=== PATIENT | male | born 1955 | race Caucasian/White ===

== ENCOUNTER 2018-12-31 09:06 | Inpatient (IN) | payer BC ==
[2018-12-31] VITALS (8 sets, daily range): BP systolic 109–144; BP diastolic 47–72
[~2018-12-31] VITALS: Ht 185.4 cm; Wt 97.4 kg
[~2018-12-31 09:06] MED LIST: DOXA4TAB5 PO; OXYB10TA14 PO
[2018-12-31] MEDS ORDERED: BUPIVACAINE W/ EPINEPH 0.25% INJ 50ML MDV ONE (09:58)
[2018-12-31] MEDS ORDERED: TRANEXAMIC ACID 10 ML ONE ×2 (09:59→10:38)
[2018-12-31] MEDS ORDERED: KETOROLAC TROMETH 30 MG/ML 1ML VIAL ONE (10:02)
[2018-12-31] MEDS ORDERED: VANCOMYCIN HCL 1000 MG VL ONE ×2 (10:06→10:23)
[2018-12-31] MEDS ORDERED: TETRACAINE 1% INJ 2 ML VIAL IJ ONE (10:14)
[2018-12-31] MEDS ORDERED: MORPHINE SULF(PF) 0.5MG/ML 10ML VIAL ONE (10:15)
[2018-12-31] MEDS ORDERED: fentaNYL CITRATE 100 MCG/2 ML VL ONE (10:15)
[2018-12-31] MEDS ORDERED: MIDAZOLAM HCL 1MG/1ML-2 ML VIAL ONE (10:15)
[2018-12-31] MEDS ORDERED: CELECOXIB 100 MG CAP ONE (10:23)
[2018-12-31] MEDS ORDERED: ACETAMINOPHEN IV 100 ML IV ONE (10:23)
[2018-12-31] MEDS ORDERED: PROPOFOL 10 MG/ML 20 ML IV ONE (10:25)
[2018-12-31] MEDS ORDERED: PHENYLEPHRINE HCL 10 MG/ML VL IV ONE (10:25)
[2018-12-31] MEDS ORDERED: CELECOXIB 100 MG CAP PO ONE (12:30)
[2018-12-31] MEDS ORDERED: PREGABALIN CAPSULE 75 MG CAP PO ONE (12:30)
[2018-12-31] MEDS ORDERED: ACETAMINOPHEN IV 1000 MG/100ML (10MG/ML) IV ONE (12:30)
[2018-12-31] MEDS ORDERED: MIDAZOLAM HCL 1MG/1ML-2 ML VIAL IV PRN (12:45)
[2018-12-31] MEDS ORDERED: DexAMETHasone SOD PHOS 10MG/1ML VIAL INJ IV PRN (12:45)
[2018-12-31] MEDS ORDERED: NALOXONE HCL 0.4 MG/ML VIAL IV PRN (12:45)
[2018-12-31] MEDS ORDERED: ONDANSETRON HCL 4 MG/2 ML VIAL IV PRN ×2 (12:45→13:15)
[2018-12-31] MEDS ORDERED: NALBUPHINE HCL 10 MG/1ml INJECTION SUBCUT ONE (12:45)
[2018-12-31] MEDS ORDERED: diphenhdrAMINE HCL 50 MG/1 ML VL IV PRN (12:45)
[2018-12-31] MEDS ORDERED: KETOROLAC TROMETH 30 MG/ML 1ML VIAL IV PRN ×2 (12:45→13:15)
[2018-12-31] MEDS ORDERED: LABETALOL HCL 5 MG/ML 4ML SYRINGE IV PRN (12:45)
[2018-12-31] MEDS ORDERED: HYDROmorphone HCL 2 MG/ML VL IV PRN (12:45)
[2018-12-31] MEDS ORDERED: ePHEDrine SULFATE 50 MG/ML AMP IV PRN (12:45)
[2018-12-31] MEDS: LACTATED RINGER'S 1,000 ML IV SCH ×2 (13:01→23:01)
[2018-12-31] MEDS ORDERED: MORPHINE SULF INJ 2 MG/ML SYRINGE 1ML IV PRN (13:15)
[2018-12-31] MEDS ORDERED: NITROGLYCERIN 0.4 MG SL TAB SL PRN (13:15)
[2018-12-31] MEDS ORDERED: BISACODYL 5 MG EC TAB PO PRN (13:15)
[2018-12-31] MEDS: AZTREONAM 1GM INJ 1 GM in D5W 5% 50 ML IV SCH ×2 (18:53→21:22)
[2018-12-31] MEDS: SODIUM CHLOR 0.9% PF (SALINE LOCK) 10ML VIAL/SYR IV SCH ×2 (18:53→22:01)
--- NOTE | 2018-12-31 19:30 | NUR ---
Opening Shift Note Received report from Nikole LIANG. Assumed care of patient, awake and alert. No S/S of distress/SOB or pain. Instructed on POC and to call for assist PRN. Fall precaution measures in place, will continue to monitor for changes Q1hr and PRN.
[2018-12-31] MEDS: VANCOMYCIN 1GM/250ML 250 ML IV SCH (22:00)
[2018-12-31] MEDS: DOXAZOSIN MESYL 2 MG TAB PO SCH (22:01)
[2018-12-31] MEDS: DOCUSATE SOD 100 MG CAP PO SCH (22:01)
[2019-01-01] VITALS (13 sets, daily range): BP systolic 100–152; BP diastolic 45–73
[2019-01-01] MEDS: OXYCODONE W/ ACETAMINOPHEN 5/325MG TABLET PO PRN ×3 (01:31→18:19)
[2019-01-01] MEDS: AZTREONAM 1GM INJ 1 GM in D5W 5% 50 ML IV SCH (06:05)
[2019-01-01] MEDS: SODIUM CHLOR 0.9% PF (SALINE LOCK) 10ML VIAL/SYR IV SCH ×3 (06:05→22:03)
[2019-01-01 06:15] LABS: Hematocrit 31.8 % (41.0-53.0); Hemoglobin 11.4 g/dL (13.5-17.5)
[2019-01-01 06:34] LABS: Albumin 2.9 g/dL (3.4-5.0); BUN/Creatinine Ratio 17.5; Calcium 7.8 mg/dL (8.5-10.1)
[2019-01-01 06:37] LABS: Bilirubin, Total 1.1 mg/dL (0.2-1.0); Total Protein 5.5 g/dL (6.4-8.2)
--- NOTE | 2019-01-01 07:36 | NUR ---
Opening Shift Note Assumed care of patient, awake and alert. No S/S of distress/SOB or pain. Instructed on POC and to call for assist PRN, will continue to monitor for changes Q1hr and PRN.
[2019-01-01] MEDS: DOCUSATE SOD 100 MG CAP PO SCH ×2 (08:41→21:15)
[2019-01-01] MEDS: VANCOMYCIN 1GM/250ML 250 ML IV SCH (08:42)
[2019-01-01] MEDS: ENOXAPARIN SOD 40 MG/0.4 ML SYRINGE SC SCH (08:42)
[2019-01-01] MEDS: OXYBUTYNIN CHLORIDE 10 MG PO SCH ×2 (08:44→10:00)
[2019-01-01] MEDS: LACTATED RINGER'S 1,000 ML IV SCH ×2 (09:01→14:22)
[2019-01-01] MEDS: KETOROLAC TROMETH 30 MG/ML 1ML VIAL IV PRN (10:34)
[2019-01-01] MEDS: HYDROmorphone HCL 2 MG/ML VL IV PRN ×2 (12:35→16:05)
--- NOTE | 2019-01-01 13:12 | NUR ---
Nassar catheter dc'd Order to discontinue nassar catheter. Nassar dc'd with clean technique following deflation of balloon. Patient tolerated well with no complaints of pain. Continue care.
[2019-01-01] MEDS ORDERED: MORPHINE SULF INJ 2 MG/ML SYRINGE 1ML IV ONE (19:30)
[2019-01-01] MEDS ORDERED: HYDROcodone-ACET 10/325MG TAB PO ONE (19:30)
--- NOTE | 2019-01-01 19:30 | NUR ---
Opening Shift Note Assumed care of patient, awake and alert. No S/S of distress/SOB. patient reported 9/10 pain to his right knee aching, nonradiating, will medicate per protocol. Instructed on POC and to call for assist PRN, will continue to monitor for changes Q1hr and PRN. bed in low position and call light within reach
[2019-01-01] MEDS: DOXAZOSIN MESYL 2 MG TAB PO SCH (21:14)
[2019-01-02] MEDS: HYDROmorphone HCL 2 MG/ML VL IV PRN ×2 (00:48→05:01)
[2019-01-02] MEDS: LACTATED RINGER'S 1,000 ML IV SCH ×3 (04:56→23:40)
--- NOTE | 2019-01-02 05:30 | NUR ---
PATIENT ON CPM AT 45. PATIENT STATED HE WOULD LIKE TO STAY AT 45. EDUCATED PATIENT ON MD ORDERS AND CPM
--- NOTE | 2019-01-02 05:30 | NUR ---
IV insertion IV access obtained, via clean sterile technique by inserting 22 gauge catheter at left hand after 1 attempt. IV secured properly. No trauma to site. Patient tolerated well.
--- NOTE | 2019-01-02 05:33 | NUR ---
IV removal IV DC'd from patient right hand. with clean sterile technique, catheter fully intact. Pressure dressing applied to site. Patient tolerated well.
[2019-01-02 05:40] VITALS: BP 147/68
[2019-01-02] MEDS: SODIUM CHLOR 0.9% PF (SALINE LOCK) 10ML VIAL/SYR IV SCH ×3 (06:03→21:58)
--- NOTE | 2019-01-02 07:10 | NUR ---
Opening Shift Note Assumed care of patient, PT resting in bed with even and non-labored respirations. No S/S of distress/SOB or pain. will continue to monitor for changes Q1hr and PRN.
--- NOTE | 2019-01-02 07:13 | NUR ---
REPORT GIVEN TO DAYSREINALDOFT RN. INFORMED RN OF CPM MACHINE SETTING. PATIENT DENIED SOB AND INFORMED RN PATIENT CONTINUES TO HAVE PAIN ON HIS RGHT KNEE
[2019-01-02 07:32] LABS: Hematocrit 30.2 % (41.0-53.0)
[2019-01-02] MEDS: OXYCODONE W/ ACETAMINOPHEN 5/325MG TABLET PO PRN ×4 (08:16→21:57)
[2019-01-02 09:00] VITALS: BP 158/75
[2019-01-02] MEDS: DOCUSATE SOD 100 MG CAP PO SCH ×2 (09:40→21:56)
[2019-01-02] MEDS: ENOXAPARIN SOD 40 MG/0.4 ML SYRINGE SC SCH (09:43)
[2019-01-02] MEDS: OXYBUTYNIN CHLORIDE 10 MG PO SCH (10:00)
[2019-01-02] MEDS: KETOROLAC TROMETH 30 MG/ML 1ML VIAL IV PRN (10:31)
[2019-01-02 13:00] VITALS: BP 142/52
--- NOTE | 2019-01-02 15:52 | NUR ---
Discharge planning per consult, patient has orders for a FWW and Home Health. Referral sent to [facility], placed a follow up call, spoke with Irlanda, patient is accepted onto services. Referral for walker sent to [facility], placed a follow up call, and was advised that patient had a Rollator Walker delivered on 12.26.18. I advised that CM auth for a FWW and the patient just had knee surgery and the rollator is not suffice as it has wheels and would put patient at a risk for falls;rep advised they would process the order as she does see the auth that was approved today at 2pm and would call back with an ETA. I advised to deliver to bedside. Nurse Sarika updated on dc plan. Addendum: 01/02/19 at 1600 by RANI FRENCH SS Amended: Links added. Addendum: 01/02/19 at 1601 by RANI GONZALESO SS [id number]
[2019-01-02] MEDS ORDERED: PERCOT PO (16:12)
--- NOTE | 2019-01-02 16:50 | NUR ---
assessment re: D/C planning Patient is a 63 year old male who is alert and oriented. Patients cognitive abilities are intact. Prior to admission patient lived home with family and functioned independently. Patient informed me he is able to care for his own ADLs. Per patient he will return home to his prior living arrangements post discharge and family will transport him home. Patient has been admitted for right knee replacement. Patient has a fww for home use. Patient will need home health for PT and a CPM. Patient feels safe returning home on discharge. I informed patient he has a right to speak to a executive secretary social welfare regarding all care. I informed patient he has a right to participate in any and all discharge planning. Patient has a POA and advanced directive. Patient verbalized understanding and agreed to discharge plan. Addendum: 01/02/19 at 1653 by Arlette DONG Amended: Links added.
[2019-01-02 17:34] VITALS: BP 130/50
[2019-01-02 21:54] VITALS: BP 153/58
[2019-01-02] MEDS: DOXAZOSIN MESYL 2 MG TAB PO SCH (21:57)
[2019-01-03 04:44] VITALS: BP 154/63
[2019-01-03] MEDS: OXYCODONE W/ ACETAMINOPHEN 5/325MG TABLET PO PRN ×2 (05:01→10:07)
[2019-01-03 06:40] LABS: Hematocrit 29.1 % (41.0-53.0)
--- NOTE | 2019-01-03 07:32 | NUR ---
Opening Shift Note Assumed care of patient, awake and alert. No S/S of distress/SOB or pain. Instructed on POC and to call for assist PRN, will continue to monitor for changes PRN.
[2019-01-03 07:54] LABS: Hemoglobin 10.8 g/dL (13.5-17.5)
[2019-01-03 09:00] VITALS: BP 141/69
[2019-01-03] MEDS: ENOXAPARIN SOD 40 MG/0.4 ML SYRINGE SC SCH (09:54)
[2019-01-03] MEDS: DOCUSATE SOD 100 MG CAP PO SCH (09:54)
[2019-01-03] MEDS: OXYBUTYNIN CHLORIDE 10 MG PO SCH (10:00)
[2019-01-03 10:32] VITALS: BP 153/58
[2019-01-03] MEDS: LACTATED RINGER'S 1,000 ML IV SCH (11:01)
--- NOTE | 2019-01-03 13:53 | NUR ---
Discharge planning per SS consult, patient has orders for home health, CPM, and FWW. [facility] has accepted patient for home health. Obtained auth, [id number]. For FWW [id number];placed a follow up call to [facility] regarding the FWW and was advised bychristi ham that they did not send the FWW because they could not get in touch with patient to see if he was willing to pay a $50 charge for the walker as he was delivered a rollator walker on 12.26.18. I advised that [facility] issued an auth and she advised that [employer] would still be at risk and that she will contact the patient, ortherwise if he didn't pay, they could not deliver the walker. Referral sent to [facility] for replacement CPM, as patient has a CPM at bedside. Referral for replacement CPM was sent to [facility]. Placed a follow up call, spoke with Erna and was advised that they did received it and that [facility] would work on the replacement order. Addendum: 01/03/19 at 1417 by RANI FRENCH Amended: Links added.
--- NOTE | 2019-01-03 13:55 | NUR ---
Discharge instructions given as ordered. Encourage to follow up with PCP as instructed. All questions and concerns addressed. Patient verbalized understanding. Medication reconciliation form completed and copy given to patient. IV removed with catheter intact, pressure dressing applied. Telemetry unit returned to ICU. Patient taken to vehicle via wheelchair with all personal belongings, accompanied by staff and . No distress noted at time of departure.
== END 2019-01-03 13:55 | disposition home health service (06) | DRG 470 ==
LOC: SUR 09:06 → TELE-EAST 16:47
PROVIDERS: ADMIT Orthopaedic Surgery Adult Reconstructive Orthopaedic Surgery; ATTEND Orthopaedic Surgery Adult Reconstructive Orthopaedic Surgery
PROC: 8E0YXBZ Computer Assisted Procedure of Lower Extremity (ICD-10-PCS; 2018-12-31)
PROC: 0SRC0J9 Replacement of Right Knee Joint with Synthetic Substitute, Cemented, Open Approach (ICD-10-PCS; principal; 2018-12-31 10:44)
DX: M17.11 Unilateral primary osteoarthritis, right knee (principal); Z96.651 Presence of right artificial knee joint; I10 Essential (primary) hypertension; Z88.0 Allergy status to penicillin; Z88.2 Allergy status to sulfonamides
CPT/HCPCS: 36415; 73560; 80053; 85014; 85018; 86850; 86900; 86901; 94762; 97110; 97116; 97530; G0378; J0131; J1885; J2250; J2704; J7060

== ENCOUNTER 2024-09-28 09:29 | Inpatient (IN) | payer BC, OTHER ==
[~2024-09-28] VITALS: Ht 182.9 cm; Wt 84.9 kg
[~2024-09-28 09:29] MED LIST changes: -DOXA4TAB5 PO; +DOXA4TAB83 PO; +PERCOT PO
--- NOTE | 2024-09-28 10:22 | ED.PDOC ---
HPI (NEURO) HPI Comments This is a 69 year old male presenting to the ED with chief complaint of dizziness. Patient reports that while at the gym yesterday, he started to experience dizziness after running on the treadmill along with having a high heart rate in the 180s. Patient relays that he rested and his heart rate and symptoms improved, however when going back on the treadmill his symptoms returned. Patient states his normal resting heart rate is in the 60s and recent ly any strenuous activity raises it excessively high. Patient notes he went to this morning regarding his concern, however, he was advised to come to the ED after having an EKG performed. Patient denies any chest pain, SOB, headache, or N/V. Chief Complaint: Dizziness Time Seen by MD: 10:18 Reviewed Notes: Nurses Notes, Medications, Allergies Information Source: Patient Mode of Arrival: Ambulatory Severity: Moderate Dizziness/Weakness Severity: Unable to do activities Timing: Days Duration: Since onset Prehospital treatment: None Onset: With heavy exertion Circumstances: Spontaneous Symptoms: Vertigo Past Medical History PAST MEDICAL HISTORY: Denies Surgical History: Denies all surgeries Family History Family History: Reviewed,noncontributory to illness Social History Smoker: Non-Smoker Alcohol: Denies ETOH Use Drugs: Denies Drug Use Lives In: Home Constitutional: denies: chills, diaphoresis, fatigue, fever, malaise, sweats, weakness, others EENTM: denies: blurred vision, double vision, ear bleeding, ear discharge, ear drainage, ear pain, ear ringing, eye pain, eye redness, hearing loss, mouth pain, mouth swelling, nasal discharge, nose bleeding, nose congestion, nose pain, photophobia, tearing, throat pain, throat swelling, voice changes, others Respiratory: denies: cough, hemoptysis, orthopnea, SOB at rest, shortness of breath, SOB with excertion, stridor, wheezing, others Cardiovascular: denies: chest pain, dizzy spells, diaphoresis, Dyspnea on exertion, edema, irregular heart beat, left arm pain, lightheadedness, palpitations, PND, syncope, others Gastrointestinal: denies: abdomen distended, abdominal pain, blood streaked bowels, constipated, diarrhea, dysphagia, difficulty swallowing, hematemesis, melena, nausea, poor appetite, poor fluid intake, rectal bleeding, rectal pain, vomiting, others Genitourinary: denies: burning, dysuria, flank pain, frequency, hematuria, incontinence, penile discharge, penile sore, pain, testicle pain, testicle swelling, urgency, others Neurological: reports: dizziness; denies: fainting, headache, left sided numbness, left sided weakness, numbness, paresthesia, pre-existing deficit, right sided numbness, right sided weakness, seizure, speech problems, tingling, tremors, weakness, others Musculoskeletal: denies: back pain, gout, joint pain, joint swelling, muscle pain, muscle stiffness, neck pain, others Integumetry: denies: bruises, change in color, change in hair/nails, dryness, laceration, lesions, lumps, rash, wounds, others Allergic/Immunocompromised: denies: Difficulty Healing, Frequent Infections, Hives, Itching, others Hematologic/Lymphatic: denies: anemia, blood clots, easy bleeding, easy bruising, swollen glands, others Endocrine: denies: excessive hunger, excessive sweating, excessive thirst, excessive urination, flushing, intolerance to cold, intolerance to heat, unexplained weight gain, unexplained weight loss, others Psychiatric: denies: anxiety, bipolar disorder, depression, hopeless, panic disorder, schizophrenia, sleepless, suicidal, others All Other Systems: Reviewed and Negative Physical Exam General Appearance: No Apparent Distress, Normal HEENT: Normal ENT Inspection, Pharynx Normal, TMs Normal Neck: Full Range of Motion, Non-Tender, Normal, Normal Inspection Respiratory: Chest Non-Tender, Lungs Clear, No Accessory Muscle Use, No Respiratory Distress, Normal Breath Sounds Cardiovascular: No Edema, No JVD, No Murmur, No Gallop, Normal Peripheral Pulses, Regular Rate/Rhythm Breast Exam: Deferred Gastrointestinal: No Organomegaly, Non Tender, No Pulsatile Mass, Normal Bowel Sounds, Soft Genitalia: Deferred Pelvic: Deferred Rectal: Deferred Extremities: No calf tenderness, Normal capillary refill, Normal inspection, Normal range of motion, Non-tender, No pedal edema Musculoskeletal : Apperance: Normal Neurologic: Alert, body and frame man II-XII nml as Tested, No Motor Deficits, Normal Affect, Normal Mood, No Sensory Deficits Cerebellar Function: Normal Reflexes: Normal Skin: Dry, Normal Color, Warm Lymphatic: No Adenopathy Was a procedure done? Was a procedure done?: No X-Ray, Labs, Meds, VS Vital Signs Date Time Temp Pulse Resp B/P (MAP) Pulse Ox O2 Delivery O2 Flow Rate FiO2 09/28/24 09:35 96 09/28/24 09:31 97.8 49 18 149/88 99 97.8 Lab Test 09/28/24 11:44 09/28/24 10:32 Range/Units Troponin I High Sensitivity Pending 14 </=54 ng/L White Blood Count 6.0 4.4-10.8 10^3/uL Red Blood Count 5.00 4.5-5.90 10^6/uL Hemoglobin 16.0 13.5-17.5 g/dL Hematocrit 44.8 41.0-53.0 % Mean Corpuscular Volume 89.5 80.0-100.0 fL Mean Corpuscular Hemoglobin 32.0 28.0-32.0 pg Mean Corpuscular Hemoglobin Concent 35.8 32.0-36.0 g/dL Red Cell Distribution Width 16.0 H 11.8-14.3 % Platelet Count 317 140-450 10^3/uL Mean Platelet Volume 7.2 6.9-10.8 fL Neutrophils (%) (Auto) 61.7 37.0-80.0 % Lymphocytes (%) (Auto) 30.5 10.0-50.0 % Monocytes (%) (Auto) 6.6 0.0-12.0 % Eosinophils (%) (Auto) 0.7 0.0-7.0 % Basophils (%) (Auto) 0.5 0.0-2.0 % Neutrophils # (Auto) 3.7 1.6-8.6 10 ^3/uL Lymphocytes # (Auto) 1.8 0.4-5.4 10 ^3/uL Monocytes # (Auto) 0.4 0-1.3 10 ^3/uL Eosinophils # (Auto) 0 0-0.8 10 ^3/uL Basophils # (Auto) 0 0-0.2 10 ^3/uL Nucleated Red Blood Cells 0.2 % Prothrombin Time 11.1 9.3-11.8 sec Prothrombin Time INR 1.05 0.9-1.15 Activated Partial Thromboplast Time 27.3 24.5-34.5 SEC D-Dimer, Quantitative 0.24 0.0-0.49 mg/L FEU Sodium Level 141 136-145 mmol/L Potassium Level 4.4 3.5-5.1 mmol/L Chloride Level 104 98-107 mmol/L Carbon Dioxide Level 28 20-31 mmol/L Anion Gap 9 5-15 Blood Urea Nitrogen 18 9-23 mg/dL Creatinine 1.15 0.700-1.30 mg/dL Glomerular Filtration Rate Calc 68 >90 mL/min BUN/Creatinine Ratio 15.7 10.0-20.0 Serum Glucose 99 74-106 mg/dL Calcium Level 10.2 8.7-10.4 mg/dL Magnesium Level 1.8 1.6-2.6 mg/dL Total Bilirubin 1.6 H 0.2-1.0 mg/dL Aspartate Amino Transferase (AST) 23 13-40 U/L Alanine Aminotransferase (ALT) 17 7-40 U/L Alkaline Phosphatase 65 46-116 U/L Total Protein 7.2 5.7-8.2 g/dL Albumin 4.8 3.2-4.8 g/dL X-Ray, Labs, Meds, VS Comment This 69-year-old male presents to the emergency room secondary to intermittent tachycardic. Says heart rate has been as high as the 180s. He will spontaneously resolve. This is unusual for the patient. He has had multiple episodes last 24 hours. Here, her workup was benign. However, seems the patient may be having multiple bouts of SVT may have an undiagnosed life- threatening cardiac abnormality. He will be admitted for monitoring. Time of 1ST Reevaluation: 11:18 Reevaluation 1ST: Unchanged Patient Education/Counseling: Diagnosis, Treatment Family Education/Counseling: No Family Present Departure 1 Departure Time of Disposition: 12:35 Impression: Primary Impression: Chest pain Additional Impressions: Palpitations Tachycardia Disposition: 09 ADMITTED INPATIENT Condition: Serious Critical Care Note Critical Care Time?: No Stability Stability form required: No Heart Score Heart Score: Heart Score Response (Comments) Value History Moderate Suspicious 1 EKG Normal 0 Age >65 2 Risk Factors 1 or 2 risk factors 1 Troponin Normal limit 0 Total 4 I personally scribed for JOSE EDUARDO KIRKLAND MD ([email or web address]) on 09/28/24 at 10:22. Electronically submitted by Carlos Monique ([email or web address]). JOSE EDUARDO KIRKLAND MD Sep 28, 2024 10:22
[2024-09-28 10:58] LABS: Hematocrit 44.8 % (41.0-53.0); Hemoglobin 16.0 g/dL (13.5-17.5); Mean Corpuscular Hemoglobin 32.0 pg (28.0-32.0); Mean Corpuscular Volume 89.5 fL (80.0-100.0); Nucleated Red Blood Cells % 0.2 %
[2024-09-28 11:15] LABS: INR 1.05 (0.9-1.15); Partial Thromboplastin Time 27.3 SEC (24.5-34.5); Prothrombin Time 11.1 sec (9.3-11.8)
[2024-09-28 11:22] LABS: Alanine Aminotransferase 17 U/L (7-40); Albumin 4.8 g/dL (3.2-4.8); Alkaline Phosphatase 65 U/L (46-116); Anion Gap 9 (5-15); BUN/Creatinine Ratio 15.7 (10.0-20.0); Bilirubin, Total 1.6 mg/dL (0.2-1.0); Blood Urea Nitrogen 18 mg/dL (9-23); Calcium 10.2 mg/dL (8.7-10.4); Carbon Dioxide 28 mmol/L (20-31); Chloride 104 mmol/L (98-107); Glucose 99 mg/dL (74-106); Magnesium 1.8 mg/dL (1.6-2.6); Potassium 4.4 mmol/L (3.5-5.1); Sodium 141 mmol/L (136-145); Total Protein 7.2 g/dL (5.7-8.2)
[2024-09-28 16:43] LABS: Urine Amorphous Crystal FEW /hpf (None Seen); Urine Protein, UAD Negative (Negative)
[2024-09-28 19:50] VITALS: PULSE 15
[2024-09-28] MEDS ORDERED: NITROGLYCERIN 0.4 MG SL TAB SL PRN (23:45)
[2024-09-28] MEDS ORDERED: HYDROcodone-ACET 5/325MG TAB PO PRN (23:45)
[2024-09-28] MEDS ORDERED: MORPHINE SULFATE INJ 2 MG/ml SYRG IV PRN (23:45)
[2024-09-28] MEDS ORDERED: ACETAMINOPHEN 325 MG TAB PO PRN (23:45)
[2024-09-28] MEDS: ENOXAPARIN SOD 80 MG/0.8ML SYRINGE SC ONE (23:45)
[2024-09-28] MEDS ORDERED: MELATONIN 5 MG TAB PO PRN (23:45)
[2024-09-28] MEDS: AMIODARONE BOLUS KIT 100 ML IV ONE (23:45)
[2024-09-29] VITALS (8 sets, daily range): BP systolic 111–134; BP diastolic 61–76; PULSE 63–96; RESP 16–19; TEMP 97.2–98.4; O2SAT 97–98
--- NOTE | 2024-09-29 00:10 | DVHHP2 ---
Admitting Diagnosis: Palpitations, Dizziness, new onset a fib History of Present Illness History Source: Patient Exam Limitations: No limitations HPI Mr. Oscar Chapman is a 69 year old male who presents with a chief complaint of dizziness. Patient reports that while at the gym Monday, he started to experience dizziness after running on the treadmill along with having a high heart rate in the 180s. Patient relays that he rested and his heart rate and symptoms improved, however when going back on the treadmill his symptoms returned. Patient states his normal resting heart rate is in the 60s and recently any strenuous activity raises it excessively high. Patient notes he went to yesterday morning regarding his concern, however, he was advised to come to the ED after having an EKG performed. Patient denies any chest pain, SOB, headache, or N/V. Home Meds Reported Medications Terbinafine HCl (Terbinafine Hydrochloride) 250 Mg Tab, 1 TAB PO DAILY 09/29/24 Omeprazole (Gnp Omeprazole) 20 Mg Tab, 40 MG PO DAILY, TAB 09/29/24 Past Medical History Cardiac: No pertinent Hx Pulmonary: No pertinent Hx Central Nervous System: No pertinent Hx GI: No pertinent Hx Hemotology/Oncology: No pertinent Hx Hepatobiliary: No pertinent Hx Psychiatric: No pertinent Hx Musculoskeletal: No pertinent Hx Rheumotologic: No pertinent Hx Infectious Disease: No peritnent Hx ENT: No pertinent Hx Renal/: No pertinent Hx Endocrine: No pertinent Hx Dermatology: No pertinent Hx Smoker: No Hx (Negative) Alocohol: None Drugs: None Lives with: With family Domestic Violence: Neg Review of Systems Constitutional: No symptom reported Ears, Nose, & Throat: No symptom reported Eyes: No symptom reported Pulmonary/Respiratory: No symptom reported Cardiovascular: Palpitations, Other (racing heart ") Gastrointestinal: No symptom reported Genitourinary: No symptom reported Musculoskeletal: No symptom reported Skin: No symptom reported Psychiatric: No symptom reported Endocrine: No symptom reported Hemotologic/Lymphatic: No symptom reported H&P Exam Vital Signs Vital Signs Date Time Temp Pulse Resp B/P (MAP) Pulse Ox O2 Delivery O2 Flow Rate FiO2 09/28/24 19:50 98.1 120 13 111/81 (91) 98 98.1 09/28/24 16:55 Room Air* 0 21 General Appeara: Well developed, Well nourished, Normal Appearance Head Exam: Normal inspection Neck Exam: Normal inspection, Non-tender, Normal alignment Eye Exam: bilateral eye Normal inspection, bilateral eye PERRL, bilateral eye EOMI Ear Exam: bilateral ear Auricle normal Nasal Exam: Normal inspection Mouth: Normal Inspection Pulmonary/Respiratory: Normal inspection, Normal breath sounds, Chest non- tender, Lungs clear Cardiovascular/Chest: Normal inspection, Regular rate, Irregularly irregular Peripheral Pulses: 2+ dorsalis pedis (R), 2+ dorsalis pedis (L), 2+ Radial (R), 2+ Radial (L) Abdominal Exam: Normal bowel sounds, Soft, No tenderness [employer] Exam: Normal hearing, Normal speech, PERRL Motor/Sensory: Normal sensory function, Normal motor function Neuro/Mental St: Alert, Oriented Appearance: Appropriate appearance, Appropriate insight Eye contact/ Speech: Cooperative, Good eye contact, Normal speech Thoughts/Psych: Normal thought pattern Skin Exam: Normal inspection, Normal color, Warm/dry SEPSIS Sepsis Screen Date sepsis recognized/suspect: Sep 28, 2024 Time Sepsis recognized/suspect: 1654 Recent Procedure: No On Antibiotic Therapy: No Respiratory Rate >20: No Heart Rate >90: No Temp<36 C (96.8 F) or >38.3 C: No SBP <90 or MAP <65 mmHG: No New Acute Mental Status Change: No Is the patient on CPAP, BIPAP,: No Physician Orders Amiodarone 360mg/200ml Premix (Nexterone (09/28/24 23:45) Amiodarone 360mg/200ml Premix (Nexterone (09/29/24 05:45) Electrocardigram (09/28/24 23:32) Admit (09/28/24 23:32) * Cardiology Consult (09/28/24 23:32) Magnesium (09/28/24 23:32) Basic Metabolic Panel (09/29/24 05:00) Basic Metabolic Panel (09/30/24 05:00) Basic Metabolic Panel (10/01/24 05:00) Complete Blood Count (09/29/24 05:00) Complete Blood Count (09/30/24 05:00) Complete Blood Count (10/01/24 05:00) Nitroglycerin Sublingual (Ntrostat Subli (09/28/24 23:45) Morphine Sulfate Injection (09/28/24 23:45) Stat Ekg For Chest Pain (09/28/24 23:32) Notify Md Of Changes From Base (09/28/24 23:32) Emergency Dept Tech For 24 Hours (09/28/24 23:32) Emergency Dysrhythmia Protocol (09/28/24 23:32) Rhythm Strips Once Every Shift (09/28/24 23:32) Oxygen By Nasal Cannula (09/28/24 23:32) Cardiac Diet-2gna,Lofat,Lochol (09/29/24 Breakfast) Famotidine Tablet (Pepcid Tablet) (09/29/24 10:00) Acetaminophen Tablet (Tylenol Tablet) (09/28/24 23:45) Hydrocodone-Acet 5/325mg Tab ([place] (09/28/24 23:45) Melatonin (Melatonin) (09/28/24 23:45) Chest Portable (09/28/24 23:48) Troponin-I Hs (09/29/24 06:00) Troponin-I Hs (09/29/24 14:00) Troponin-I Hs (09/29/24 22:00) Echo 2d Mode Cardiac Dop (09/28/24 23:48) Enoxaparin Sodium (Lovenox) (09/29/24 10:00) Vital Signs Date Time Temp Pulse Resp B/P (MAP) Pulse Ox O2 Delivery O2 Flow Rate FiO2 09/28/24 19:50 98.1 120 13 111/81 (91) 98 98.1 09/28/24 18:39 98.1 120 13 120/65 (83) 99 98.1 09/28/24 18:18 98.0 60 16 108/96 (100) 98 98.0 09/28/24 16:55 Room Air* 0 21 09/28/24 16:34 70 16 116/72 (87) 99 Labs/Xrays Labs Test 09/28/24 23:58 09/28/24 16:07 09/28/24 13:22 09/28/24 10:32 Range/Units Urine Color Yellow Yellow Urine Clarity Clear Clear Urine pH 6.0 5.0-9.0 Urine Specific [place] 1.028 1.001-1.035 Urine Protein Negative Negative Urine Ketones Negative Negative Urine Blood Negative Negative /uL Urine Nitrite Negative Negative Urine Bilirubin Negative Negative Urine Urobilinogen Normal Negative mg/dL Urine Leukocyte Esterase Negative Negative /uL Urine RBC 2 0 - 3 /hpf Urine Microscopic WBC 2 0-3 /HPF Urine Squamous Epithelial Cells Few <5 /hpf Urine Amorphous Crystals Few None Seen /hpf Urine Bacteria None seen None Seen /hpf Urine Hyaline Casts Few 0 - 2 /lpf Urine Mucus Few None Seen Urine Glucose Normal Normal mg/dL Troponin I High Sensitivity 12 </=54 ng/L White Blood Count 6.0 4.4-10.8 10^3/uL Red Blood Count 5.00 4.5-5.90 10^6/uL Hemoglobin 16.0 13.5-17.5 g/dL Hematocrit 44.8 41.0-53.0 % Mean Corpuscular Volume 89.5 80.0-100.0 fL Mean Corpuscular Hemoglobin 32.0 28.0-32.0 pg Mean Corpuscular Hemoglobin Concent 35.8 32.0-36.0 g/dL Red Cell Distribution Width 16.0 H 11.8-14.3 % Platelet Count 317 140-450 10^3/uL Mean Platelet Volume 7.2 6.9-10.8 fL Neutrophils (%) (Auto) 61.7 37.0-80.0 % Lymphocytes (%) (Auto) 30.5 10.0-50.0 % Monocytes (%) (Auto) 6.6 0.0-12.0 % Eosinophils (%) (Auto) 0.7 0.0-7.0 % Basophils (%) (Auto) 0.5 0.0-2.0 % Neutrophils # (Auto) 3.7 1.6-8.6 10 ^3/uL Lymphocytes # (Auto) 1.8 0.4-5.4 10 ^3/uL Monocytes # (Auto) 0.4 0-1.3 10 ^3/uL Eosinophils # (Auto) 0 0-0.8 10 ^3/uL Basophils # (Auto) 0 0-0.2 10 ^3/uL Nucleated Red Blood Cells 0.2 % Prothrombin Time 11.1 9.3-11.8 sec Prothrombin Time INR 1.05 0.9-1.15 Activated Partial Thromboplast Time 27.3 24.5-34.5 SEC D-Dimer, Quantitative 0.24 0.0-0.49 mg/L FEU Sodium Level 141 136-145 mmol/L Potassium Level 4.4 3.5-5.1 mmol/L Chloride Level 104 98-107 mmol/L Carbon Dioxide Level 28 20-31 mmol/L Anion Gap 9 5-15 Blood Urea Nitrogen 18 9-23 mg/dL Creatinine 1.15 0.700-1.30 mg/dL Glomerular Filtration Rate Calc 68 >90 mL/min BUN/Creatinine Ratio 15.7 10.0-20.0 Serum Glucose 99 74-106 mg/dL Calcium Level 10.2 8.7-10.4 mg/dL Total Bilirubin 1.6 H 0.2-1.0 mg/dL Aspartate Amino Transferase (AST) 23 13-40 U/L Alanine Aminotransferase (ALT) 17 7-40 U/L Alkaline Phosphatase 65 46-116 U/L Total Protein 7.2 5.7-8.2 g/dL Albumin 4.8 3.2-4.8 g/dL Assessment/Plan Problem List: (1) Atrial fibrillation with RVR (2) Dizziness (3) Palpitations Plan This is a 69 yo male who presents to the hospital with dizziness, palpitations . Patient found to have 1. Palpitations 2. Dizziness 3. New onset a fib with RVR Plan Admit Telemetry Cardiology consult, 2D Echocardiogram Mg level, BMP Lovenox 1mg/kg SC every 12h Amiodarone drip per protocol Discussed all above with patient who verbalizes agreement and understanding of care plan. All questions were answered. Plan discussed with: Patient, Other Code Visit Code Visit Total Time (mins): 45 KWASI STROUD Sep 29, 2024 00:10 SREE CANO MD Sep 29, 2024 16:20
[2024-09-29] MEDS ORDERED: OMEP20TA PO (03:00)
[2024-09-29] MEDS ORDERED: TERB250T86 PO (03:00)
[2024-09-29] MEDS: AMIODARONE 360mg/200mL PREMIX 200 ML IV ONE (03:17)
--- NOTE | 2024-09-29 05:14 | ECG ---
[facility] Test Date: 2024-09-28 Test Time: 09:35:39 Pat Name: ABELINO RODRIGUEZ Department: Room: 0218T B Gender: M Manager Photo: clau : [phone] Requested By: JOSE EDUARDO KIRKLAND Order Number: [id number] Reading MD: Micky Arias Measurements Intervals [place] Rate: 96 P: 0 DE: 0 QRS: 59 QRSD: 76 T: 51 QT: 327 QTc: 414 Interpretive Statements Atrial fibrillation Electronically Signed On 09-30-2024 22:53:16 PDT by Micky Arias Please click the below link to view image of tracing.
--- NOTE | 2024-09-29 06:36 | DVH ---
CHEST RADIOGRAPH Indication: admission Technique: Single frontal view of the chest was obtained COMPARISON: None FINDINGS: Lines and Tubes: None Lungs: Clear Pleura: No effusion. No pneumothorax. Cardiomediastinal contours: Unremarkable Bones: Unremarkable IMPRESSION: 1. No acute disease.
[2024-09-29 07:39] LABS: Chloride 106 mmol/L (98-107); Potassium 4.5 mmol/L (3.5-5.1); Sodium 142 mmol/L (136-145)
[2024-09-29 07:40] LABS: Anion Gap 6 (5-15); Calcium 9.4 mg/dL (8.7-10.4); Carbon Dioxide 30 mmol/L (20-31)
[2024-09-29 07:45] LABS: BUN/Creatinine Ratio 17.8 (10.0-20.0); Blood Urea Nitrogen 21 mg/dL (9-23); Glucose 101 mg/dL (74-106)
[2024-09-29 08:00] LABS: Hematocrit 38.1 % (41.0-53.0); Hemoglobin 13.8 g/dL (13.5-17.5); Mean Corpuscular Hemoglobin 32.6 pg (28.0-32.0); Mean Corpuscular Volume 90.2 fL (80.0-100.0); Nucleated Red Blood Cells % 0.1 %
[2024-09-29] MEDS: FAMOTIDINE 20 MG TAB PO SCH (09:35)
[2024-09-29] MEDS: ENOXAPARIN SOD 80 MG/0.8ML SYRINGE SC SCH (09:35)
[2024-09-29] MEDS: AMIODARONE 360mg/200mL PREMIX 200 ML IV SCH (10:07)
--- NOTE | 2024-09-29 16:23 | DVHPN2 ---
Subjective This follow up on 69-year-old male with a known history of GERD, fungal toenail currently on dopamine of five presented to the hospital with a dizziness found to have AFib with RVR currently on amiodarone drip. Denies any chest pain. Patient denies any shortness of breaths. Changes from previous H/P or p: No Changes Objective Vitals Vital Signs Date Time Temp Pulse Resp B/P (MAP) Pulse Ox O2 Delivery O2 Flow Rate FiO2 09/29/24 13:00 98.4 64 16 111/71 (84) 98 98.4 09/29/24 08:00 Room Air* 0 21 Intake/Output Intake and Output 09/29/24 07:00 Intake Total 100 ml Balance 100 ml Intake Oral 100 ml # Voids 1 Exam HEENT pupils are reactive Neck is supple CV is S1-S2 irregularly irregular rate and rhythm Respiratory bilateral clear GI positive bowel sound Extremity no edema [employer] no motor deficit. Medications Current Medications Medications Dose Ordered Sig/Carol Route Start Time Stop Time Status Last Admin Dose Admin Nitroglycerin 0.4 mg Q5MINP PRN SL 09/28/24 23:45 Morphine Sulfate 2 mg Q30M PRN IV 09/28/24 23:45 Enoxaparin Sodium 80 mg Q12HR SC 09/29/24 10:00 09/29/24 09:35 80 MG Famotidine 20 mg BID PO 09/29/24 10:00 09/29/24 09:35 20 MG Acetaminophen 650 mg Q6HPRN PRN PO 09/28/24 23:45 Acetaminophen/ Hydrocodone Bitart 1 tab Q6HPRN PRN PO 09/28/24 23:45 Melatonin 5 mg ONCE@2200 PRN PO 09/28/24 23:45 Laboratory Results Laboratory Tests 09/29/24 06:39 Chemistry Test 09/28/24 23:58 09/29/24 06:39 Magnesium Level 1.7 mg/dL (1.6-2.6) Calcium Level 9.4 mg/dL (8.7-10.4) Urinalysis Test 09/28/24 16:07 Urine Color Yellow (Yellow) Urine Clarity Clear (Clear) Urine pH 6.0 (5.0-9.0) Urine Specific [place] 1.028 (1.001-1.035) Urine Protein Negative (Negative) Urine Ketones Negative (Negative) Urine Blood Negative /uL (Negative) Urine Nitrite Negative (Negative) Urine Bilirubin Negative (Negative) Urine Urobilinogen Normal mg/dL (Negative) Urine Leukocyte Esterase Negative /uL (Negative) Urine RBC 2 /hpf (0 - 3) Urine Microscopic WBC 2 /HPF (0-3) Urine Squamous Epithelial Cells Few /hpf (<5) Urine Amorphous Crystals Few /hpf (None Seen) Urine Bacteria None seen /hpf (None Seen) Urine Hyaline Casts Few /lpf (0 - 2) Urine Mucus Few (None Seen) Urine Glucose Normal mg/dL (Normal) Assessment/Plan Assessment/Plan 69-year-old male with a known history of GERD, fungal toenail currently on intravenous I would presented to the hospital with dizziness found to have 1. AFib with RVR 2. Dizziness and palpitation secondary to 1. 3. GERD 4. Fungal toenail currently on terbinafine. -continue amiodarone drip, add low-dose of beta christine, taper of amiodarone drip, therapeutic Lovenox for primary prevention Of stroke.-2D echo cardiology consultation. Plan discussed with: Patient, Spouse Date of Service: Sep 29, 2024 Billing Provider: SREE CANO MD Common Visit Codes: NOT BILLABLE SREE CANO MD Sep 29, 2024 16:23
[2024-09-29] MEDS: METOPROLOL TARTRATE 25 MG TAB PO SCH (22:18)
[2024-09-30 01:00] VITALS: BP 137/80; PULSE 64; RESP 17; TEMP 98.3; O2SAT 98
[2024-09-30 05:00] VITALS: BP 121/69; PULSE 58; RESP 17; TEMP 98; O2SAT 97
[2024-09-30 08:00] VITALS: PULSE 61; PULSE 64; RESP 18; O2SAT 98
[2024-09-30 08:42] LABS: Hematocrit 38.2 % (41.0-53.0); Hemoglobin 13.7 g/dL (13.5-17.5); Mean Corpuscular Hemoglobin 32.4 pg (28.0-32.0); Mean Corpuscular Volume 90.3 fL (80.0-100.0); Nucleated Red Blood Cells % 0.1 %
[2024-09-30 08:44] LABS: Chloride 103 mmol/L (98-107); Potassium 4.3 mmol/L (3.5-5.1); Sodium 141 mmol/L (136-145)
[2024-09-30 08:45] LABS: Anion Gap 7 (5-15); Calcium 10.0 mg/dL (8.7-10.4); Carbon Dioxide 31 mmol/L (20-31)
[2024-09-30 08:50] LABS: BUN/Creatinine Ratio 12.4 (10.0-20.0); Blood Urea Nitrogen 14 mg/dL (9-23); Glucose 98 mg/dL (74-106)
[2024-09-30 08:51] VITALS: BP 126/71; PULSE 64; RESP 18; TEMP 99; O2SAT 98
--- NOTE | 2024-09-30 10:27 | DVHINCON2 ---
Date of service: Sep 30, 2024 History of Present Illness 69 yo M with hx of OA, obesity s/p gastric bypass 30 years ago, admitted for afib rvr. pt had episode last Nov on apple watch but not medically problematic. now he noticed his HR jumpt o180 when he got on his step climber. Past Medical History reviewed Family History: FH: cancer G8 BROTHER G8 SISTER FH: dementia G8 MOTHER, , Age: 60 years and older G8 FATHER, , Age: 60 years and older Allergies: Coded Allergies: Penicillins (Verified Allergy, Unknown, 12/25/18) Sulfa Antibiotics (Verified Allergy, Unknown, 12/25/18) Home Meds Reported Medications Terbinafine HCl (Terbinafine Hydrochloride) 250 Mg Tab, 1 TAB PO DAILY 09/29/24 Omeprazole (Gnp Omeprazole) 20 Mg Tab, 40 MG PO DAILY, TAB 09/29/24 Current Medications Current Medications Medications (Trade) Dose Ordered Sig/Carol Route PRN Reason Start Time Stop Time Status Last Admin Metoprolol Tartrate (Lopressor Tablet) 25 mg BID PO 09/29/24 22:00 09/30/24 09:12 Review of Systems 10 pt ros otherwise negative Vital Signs Vital Signs Date Time Temp Pulse Resp B/P (MAP) Pulse Ox O2 Delivery O2 Flow Rate FiO2 09/30/24 09:12 64 126/71 09/30/24 08:51 99.0 18 98 99.0 09/30/24 08:00 Room Air* 0 21 Physical Exam nad s1 s2 rrr ctab soft nt/nd no edema Labs/Diagnostic Data Labs Test 09/30/24 07:31 09/29/24 22:04 09/28/24 23:58 09/28/24 16:07 Range/Units White Blood Count 8.4 # 4.4-10.8 10^3/uL Red Blood Count 4.23 L 4.5-5.90 10^6/uL Hemoglobin 13.7 13.5-17.5 g/dL Hematocrit 38.2 L 41.0-53.0 % Mean Corpuscular Volume 90.3 80.0-100.0 fL Mean Corpuscular Hemoglobin 32.4 H 28.0-32.0 pg Mean Corpuscular Hemoglobin Concent 35.9 32.0-36.0 g/dL Red Cell Distribution Width 15.7 H 11.8-14.3 % Platelet Count 262 140-450 10^3/uL Mean Platelet Volume 7.4 6.9-10.8 fL Neutrophils (%) (Auto) 71.0 37.0-80.0 % Lymphocytes (%) (Auto) 20.8 10.0-50.0 % Monocytes (%) (Auto) 6.7 0.0-12.0 % Eosinophils (%) (Auto) 0.9 0.0-7.0 % Basophils (%) (Auto) 0.6 0.0-2.0 % Neutrophils # (Auto) 6.0 1.6-8.6 10 ^3/uL Lymphocytes # (Auto) 1.8 0.4-5.4 10 ^3/uL Monocytes # (Auto) 0.6 0-1.3 10 ^3/uL Eosinophils # (Auto) 0.1 0-0.8 10 ^3/uL Basophils # (Auto) 0 0-0.2 10 ^3/uL Nucleated Red Blood Cells 0.1 % Sodium Level 141 136-145 mmol/L Potassium Level 4.3 3.5-5.1 mmol/L Chloride Level 103 98-107 mmol/L Carbon Dioxide Level 31 20-31 mmol/L Anion Gap 7 5-15 Blood Urea Nitrogen 14 9-23 mg/dL Creatinine 1.13 0.700-1.30 mg/dL Glomerular Filtration Rate Calc 70 >90 mL/min BUN/Creatinine Ratio 12.4 10.0-20.0 Serum Glucose 98 74-106 mg/dL Calcium Level 10.0 8.7-10.4 mg/dL Troponin I High Sensitivity 13 </=54 ng/L Magnesium Level 1.7 1.6-2.6 mg/dL Urine Color Yellow Yellow Urine Clarity Clear Clear Urine pH 6.0 5.0-9.0 Urine Specific [place] 1.028 1.001-1.035 Urine Protein Negative Negative Urine Ketones Negative Negative Urine Blood Negative Negative /uL Urine Nitrite Negative Negative Urine Bilirubin Negative Negative Urine Urobilinogen Normal Negative mg/dL Urine Leukocyte Esterase Negative Negative /uL Urine RBC 2 0 - 3 /hpf Urine Microscopic WBC 2 0-3 /HPF Urine Squamous Epithelial Cells Few <5 /hpf Urine Amorphous Crystals Few None Seen /hpf Urine Bacteria None seen None Seen /hpf Urine Hyaline Casts Few 0 - 2 /lpf Urine Mucus Few None Seen Urine Glucose Normal Normal mg/dL Test 09/28/24 10:32 Range/Units Prothrombin Time 11.1 9.3-11.8 sec Prothrombin Time INR 1.05 0.9-1.15 Activated Partial Thromboplast Time 27.3 24.5-34.5 SEC D-Dimer, Quantitative 0.24 0.0-0.49 mg/L FEU Total Bilirubin 1.6 H 0.2-1.0 mg/dL Aspartate Amino Transferase (AST) 23 13-40 U/L Alanine Aminotransferase (ALT) 17 7-40 U/L Alkaline Phosphatase 65 46-116 U/L Total Protein 7.2 5.7-8.2 g/dL Albumin 4.8 3.2-4.8 g/dL Assessment afib rvr hx of gastric bypass GERD Plan/Recommendation pt is now in SR dc home DOAC for cva prevention toprol and amiodarone po bid 200 mg cont to monitor himself daily preserved LVEF on echo outpt cv fu Plan discussed with: Patient ROBERT ASHLEY MD Sep 30, 2024 10:27
--- NOTE | 2024-09-30 10:34 | DVHSR ---
APPROVED REPORT EXAM: Two-dimensional and M-mode echocardiogram with Doppler and color Doppler. Blood Pressure: 115/76 mmHg INDICATION AFIB RISK FACTORS Height: 70, Weight: 183 DIMENSIONS LVDd4.6 (3.8-5.7cm)LA (2D)4.2 (1.9-4.0cm)Aortic Root3.4 (2.0-3.7cm) LVDs3.5 (2.5-4.0cm)LA (MM) (1.9-4.0cm)Aortic Cusp Exc2.0 (1.5-2.0cm) EF (%) 50.0 (55-70%)Rt. Atrium4.5 (1.9-4.0cm)Asc. Aorta cm Mitral Valve MitralMitral Stenosis E wave0.99m/sMV Mean GR.mmHg A wavem/sMV Peak GR.82mmHg E/A ratio0.02D MVAcm2 Aortic Valve Aortic ValveAortic Stenosis V10.97m/Josef Mean GR.4mmHg V21.30m/Josef Peak GR.7mmHg LVOT Diameter2.2 (1.8-2.4cm)Doppler AVA2.83cm2 Pulmonic Valve V21.29m/s Tricuspid Valve TR Velocity1.65m/s [id number] Other Information Technically limited study due to body habitus. Conclusion lvef 55% by visual estimate arrhythmia noted during study mild lvh normal rv function but mild Enlargement no severe valve abnormalities noted
[2024-09-30 13:06] VITALS: BP 143/81; PULSE 64; RESP 17; TEMP 98.5; O2SAT 98
[2024-09-30] MEDS ORDERED: RIV20T PO (13:51)
[2024-09-30] MEDS ORDERED: METO-6 PO (13:51)
[2024-09-30] MEDS ORDERED: AMIO200T13 PO (13:51)
--- NOTE | 2024-09-30 13:56 | DVHDS2 ---
Discharge Summary Date of Admission Sep 28, 2024 at 23:32 Date of Discharge: Sep 30, 2024 Labs/Diagnostic Data: Laboratory Results Test 09/30/24 07:31 09/29/24 22:04 09/28/24 23:58 09/28/24 16:07 White Blood Count 8.4 10^3/uL (4.4-10.8) Red Blood Count 4.23 10^6/uL (4.5-5.90) Hemoglobin 13.7 g/dL (13.5-17.5) Hematocrit 38.2 % (41.0-53.0) Mean Corpuscular Volume 90.3 fL (80.0-100.0) Mean Corpuscular Hemoglobin 32.4 pg (28.0-32.0) Mean Corpuscular Hemoglobin Concent 35.9 g/dL (32.0-36.0) Red Cell Distribution Width 15.7 % (11.8-14.3) Platelet Count 262 10^3/uL (140-450) Mean Platelet Volume 7.4 fL (6.9-10.8) Neutrophils (%) (Auto) 71.0 % (37.0-80.0) Lymphocytes (%) (Auto) 20.8 % (10.0-50.0) Monocytes (%) (Auto) 6.7 % (0.0-12.0) Eosinophils (%) (Auto) 0.9 % (0.0-7.0) Basophils (%) (Auto) 0.6 % (0.0-2.0) Neutrophils # (Auto) 6.0 10 ^3/uL (1.6-8.6) Lymphocytes # (Auto) 1.8 10 ^3/uL (0.4-5.4) Monocytes # (Auto) 0.6 10 ^3/uL (0-1.3) Eosinophils # (Auto) 0.1 10 ^3/uL (0-0.8) Basophils # (Auto) 0 10 ^3/uL (0-0.2) Nucleated Red Blood Cells 0.1 % Sodium Level 141 mmol/L (136-145) Potassium Level 4.3 mmol/L (3.5-5.1) Chloride Level 103 mmol/L (98-107) Carbon Dioxide Level 31 mmol/L (20-31) Anion Gap 7 (5-15) Blood Urea Nitrogen 14 mg/dL (9-23) Creatinine 1.13 mg/dL (0.700-1.30) Glomerular Filtration Rate Calc 70 mL/min (>90) BUN/Creatinine Ratio 12.4 (10.0-20.0) Serum Glucose 98 mg/dL (74-106) Calcium Level 10.0 mg/dL (8.7-10.4) Troponin I High Sensitivity 13 ng/L (</=54) Magnesium Level 1.7 mg/dL (1.6-2.6) Urine Color Yellow (Yellow) Urine Clarity Clear (Clear) Urine pH 6.0 (5.0-9.0) Urine Specific [place] 1.028 (1.001-1.035) Urine Protein Negative (Negative) Urine Ketones Negative (Negative) Urine Blood Negative /uL (Negative) Urine Nitrite Negative (Negative) Urine Bilirubin Negative (Negative) Urine Urobilinogen Normal mg/dL (Negative) Urine Leukocyte Esterase Negative /uL (Negative) Urine RBC 2 /hpf (0 - 3) Urine Microscopic WBC 2 /HPF (0-3) Urine Squamous Epithelial Cells Few /hpf (<5) Urine Amorphous Crystals Few /hpf (None Seen) Urine Bacteria None seen /hpf (None Seen) Urine Hyaline Casts Few /lpf (0 - 2) Urine Mucus Few (None Seen) Urine Glucose Normal mg/dL (Normal) Test 09/28/24 10:32 Prothrombin Time 11.1 sec (9.3-11.8) Prothrombin Time INR 1.05 (0.9-1.15) Activated Partial Thromboplast Time 27.3 SEC (24.5-34.5) D-Dimer, Quantitative 0.24 mg/L FEU (0.0-0.49) Total Bilirubin 1.6 mg/dL (0.2-1.0) Aspartate Amino Transferase (AST) 23 U/L (13-40) Alanine Aminotransferase (ALT) 17 U/L (7-40) Alkaline Phosphatase 65 U/L (46-116) Total Protein 7.2 g/dL (5.7-8.2) Albumin 4.8 g/dL (3.2-4.8) Other Laboratory Tests 09/30/24 07:31 Brief Hx & Hospital Course: 69-year-old male with a known history of GERD, fungal toenail currently on antifungal medication Terbinafide , history of gastric bypass surgery, presented to the hospital with chest pain palpitation found to have AFib with RVR. Patient was eventually admitted to telemetry floor. Started on IV amiodarone drip. Which was switched to beta christine at p.o. amiodarone later on. Patient did receive therapeutic Lovenox during the hospital stay which will be switched to direct oral anticoagulants on discharge. Patient is currently being discharged under stable condition. Risks benefits and alternatives of Xarelto including life-threatening bleeding disability explained to the patient in detail who understand verbalized understanding and agreeable to plan. Condition at Discharge: Stable Final Diagnosis/Problems List 69-year-old male with a known history of GERD, fungal toenail currently on intravenous I would presented to the hospital with dizziness found to have 1. AFib with RVR 2. Dizziness and palpitation secondary to 1. 3. GERD 4. Fungal toenail currently on terbinafine. Discharge Disposition: Home SNF Discharge Will this Physician continue t: No Discharge Instruct/Medications Diet: Cardiac 2g Na,low cholest Activity: No Restrictions, As Tolerated Follow Up/Referral: Follow up with the PCP and Dr. Mejía in 1-2 weeks Medications: Amiodarone, Toprol-XL, Xarelto as prescribed. New Medications: Metoprolol Succinate (Toprol Xl) 50 Mg Tab 0.5 TAB PO DAILY, #30 TAB 5 Refills Amiodarone HCl (Amiodarone HCl) 200 Mg Tab 200 MG PO Q12HR for 30 Days, #60 TAB Rivaroxaban (Xarelto Tablet) 20 Mg Tb 20 MG PO QPM for 30 Days, #30 TAB Continued Medications: Omeprazole (Gnp Omeprazole) 20 Mg Tab 40 MG PO DAILY, TAB Terbinafine HCl (Terbinafine Hydrochloride) 250 Mg Tab 1 TAB PO DAILY Scheduled Amiodarone HCl (Amiodarone HCl), 200 MG PO Q12HR Metoprolol Succinate (Toprol Xl), 0.5 TAB PO DAILY Omeprazole (Gnp Omeprazole), 40 MG PO DAILY, (Reported) Rivaroxaban (Xarelto Tablet), 20 MG PO QPM Terbinafine HCl (Terbinafine Hydrochloride), 1 TAB PO DAILY, (Reported) Discharge Statement: "Patient was advised to return to the ER or call 911 if any headaches, dizziness, shortness of breath, chest pain, abdominal pain, bleeding, fevers, or worsening of medical condition. Patient was counseled about treatment plan, medications, possible side effects, patientverbalized understanding. All questions were answered to the best of my ability. This discharge took greater then 30 minutes in planning, reviewing documentation, counseling the patient, and discussing with other team members." ASSESSMENT ASSESSMENT Assessment 69-year-old male with a known history of GERD, fungal toenail currently on intravenous I would presented to the hospital with dizziness found to have 1. AFib with RVR 2. Dizziness and palpitation secondary to 1. 3. GERD 4. Fungal toenail currently on terbinafine. Date of Service: Sep 30, 2024 Billing Provider: SREE CANO MD Common Visit Codes: NOT BILLABLE SREE CANO MD Sep 30, 2024 13:56
[2024-09-30] MEDS ORDERED: RIVAROXABAN 20 MG TAB PO SCH (18:00)
[2024-09-30] MEDS ORDERED: AMIODARONE HCL 200 MG TAB PO SCH (22:00)
--- NOTE | 2024-10-01 10:51 | ECG ---
[facility] Test Date: 2024-09-29 Test Time: 01:04:19 Pat Name: ABELINO RODRIGUEZ Department: ER Room: 0218T B Gender: M Cloth Tester: MIGUEL A : 1955 Requested By: KWASI STROUD Order Number: [id number] Reading MD: Micky Arias Measurements Intervals [place] Rate: 100 P: 0 [place]: 0 QRS: 74 QRSD: 83 T: 148 QT: 341 QTc: 440 Interpretive Statements Atrial fibrillation Ventricular premature complex Probable lateral infarct, age indeterminate Baseline wander in lead(s) V1 Electronically Signed On 10-01-2024 22:58:18 PDT by Micky Arias Please click the below link to view image of tracing.
== END 2024-09-30 15:18 | disposition home or self-care (01) | DRG 310 ==
LOC: ER 09:29 → OVERFLOW 23:32 → TELE-CENTR 09-29 02:44
PROVIDERS: ADMIT Nurse Practitioner Family; ATTEND Nurse Practitioner Family
DX: I48.91 Unspecified atrial fibrillation (principal); K21.9 Gastro-esophageal reflux disease without esophagitis; B35.1 Tinea unguium; R07.9 Chest pain, unspecified; Z98.84 Bariatric surgery status; Z87.891 Personal history of nicotine dependence; Z88.0 Allergy status to penicillin; Z88.2 Allergy status to sulfonamides; Z80.8 Family history of malignant neoplasm of other organs or systems; Z81.8 Family history of other mental and behavioral disorders
CPT/HCPCS: 36415; 71045; 80048; 80053; 81001; 83735; 84484; 85025; 85379; 85610; 85730; 93005; 93306; 96365; G0378